=== PATIENT | male | born 1945 | race Two or more races ===

== ENCOUNTER 2017-01-22 21:32 | Emergency (ER) | payer MEDICARE, BC ==
[2017-01-22 22:30] LABS: ABSOLUTE LYMPHOCYTES (AUTO) 1.2 10^3/uL (0.5-4.7); ABSOLUTE MONOCYTES (AUTO) 0.4 10^3/uL (0.1-1.4); ABSOLUTE NEUT (AUTO) 9.1 10^3/uL (1.7-8.2); BASOPHILS % (AUTO) 0.4 % (0-2); EOSINOPHILS % (AUTO) 0.2 % (0-6); HEMATOCRIT 46.8 % (37.9-51.0); HEMOGLOBIN 16.4 g/dL (13.5-17.0); HGB HCT DIFFERENCE 2.4; LYMPHOCYTES % (AUTO) 11.5 % (13-45); MEAN CORPUSCULAR HEMOGLOBIN 31.1 pg (27.0-33.4); MEAN CORPUSCULAR VOLUME 89 fl (80-97); MONOCYTES % (AUTO) 3.9 % (3-13); RED BLOOD COUNT 5.28 10^6/uL (4.35-5.55); RED CELL DISTRIBUTION WIDTH 12.8 % (11.5-14.0); WHITE BLOOD COUNT 10.8 10^3/uL (4.0-10.5)
[2017-01-22 22:33] LABS: APPEARANCE,URINE CLEAR; BILIRUBIN,URINE NEGATIVE (NEGATIVE); GLUCOSE, URINE 50 mg/dL (NEGATIVE); KETONES,URINE 80 mg/dL (NEGATIVE); LEUKOCYTE ESTERASE,URINE SMALL (NEGATIVE); NITRITE,URINE NEGATIVE (NEGATIVE); PROTEIN,URINE NEGATIVE (NEGATIVE); UROBILINOGEN,URINE NEGATIVE mg/dL (<2.0)
[2017-01-22 22:50] LABS: ALANINE AMINOTRANSFERASE 51 U/L (21-72); ALBUMIN 4.9 g/dL (3.5-5.0); ALKALINE PHOSPHATASE 64 U/L (38-126); ANION GAP 15 (5-19); ASPARTATE AMINO TRANSFERASE 25 U/L (17-59); BILIRUBIN,DIRECT 0.4 mg/dL (0.0-0.4); BILIRUBIN,TOTAL 0.8 mg/dL (0.2-1.3); BLOOD UREA NITROGEN 19 mg/dL (7-20); CALCIUM 10.3 mg/dL (8.4-10.2); CARBON DIOXIDE 25 mmol/L (22-30); CHLORIDE 101 mmol/L (98-107); CREATININE RESULT 1.12 mg/dL (0.52-1.25); GLUCOSE 136 mg/dL (75-110); LIPASE 118.4 U/L (23-300); POTASSIUM 4.5 mmol/L (3.6-5.0); SODIUM 140.9 mmol/L (137-145); TOTAL PROTEIN 7.8 g/dL (6.3-8.2)
--- NOTE | 2017-01-22 23:48 | ER Document Report ---
ED GI/ - General Chief Complaint: Abdominal Pain Stated Complaint: ABDOMINAL PAIN Time Seen by Provider: 01/22/17 23:38 Mode of Arrival: Ambulatory Information source: Patient TRAVEL OUTSIDE OF THE [place] IN LAST 30 DAYS: No - HPI Patient complains to provider of: Abdominal pain Notes: 01/22/17 23:45 71-year-old male with history of appendectomy and prostatectomy presents with epigastric pain. Radiating at about 4:00 this afternoon radiating to the interscapular region. Pain is fairly severe initially somewhat like he had to belch and the air was trapped. It has slowly since subsided and is extremely mild at this point. He had nausea but no vomiting. He had 2 bowel movements which were normal without blood or melena and feels that this helped improve his pain as well. No fever. No cough or cold symptoms. Denies any anterior chest discomfort, arm pain jaw pain or other anginal equivalents otherwise. - Related Data Allergies/Adverse Reactions: No Known Allergies Allergy (Verified 01/22/17 21:41) Past Medical History - Social History Smoking Status: Never Smoker Family History: Reviewed & Not Pertinent Patient has suicidal ideation: No Patient has homicidal ideation: No Renal/ Medical History: Denies: Hx Peritoneal Dialysis Review of Systems - Review of Systems -: Yes All other systems reviewed and negative Physical Exam - Vital signs Vitals: Temp Pulse Resp BP Pulse Ox 97.7 F 56 L 18 187/81 H 97 01/22/17 21:42 01/22/17 21:42 01/22/17 21:42 01/22/17 21:42 01/22/17 21:42 - Notes Notes: GENERAL: VS as per nursing doc. Well-appearing, well-nourished and in no acute distress. HEAD: Atraumatic, normocephalic. EYES: Pupils equal round and reactive to light, extraocular movements intact, sclera anicteric, no conjunctival injection or discharge. ENT: Nares patent, oropharynx clear without exudates, moist mucous membranes. NECK: Normal range of motion, supple without lymphadenopathy. LUNGS: Breath sounds clear to auscultation bilaterally and equal. No wheezes rales or rhonchi. HEART: Regular rate and rhythm without murmurs. Symmetrical pulses. ABDOMEN: Soft, essentially nontender with a minimal amount of tenderness just above the umbilicus. No pulsatile mass is noted., normoactive bowel sounds. No guarding, no rebound. No masses appreciated. No Armington sign. BACK: No CVA tenderness. EXTREMITIES: Normal range of motion, no calf tenderness, no edema. Femoral pulses are equal. NEUROLOGICAL: Normal speech. Normal sensory and motor exams. No gross cerebellar abnormalities. PSYCH: Normal mood, normal affect. SKIN: Warm, dry, normal turgor, no lesions noted. Course - Re-evaluation Re-evalutation: 01/23/17 01:36 Patient is completely pain-free. Minimal white count elevation. Otherwise clinically has no signs of cholecystitis. This seems consistent with biliary colic. LFTs and lipase are normal. He is asking to go home which seems reasonable and I had a long discussion with him regarding warning signs for follow-up and return to the ER emergency warning signs. He voices understanding. On recheck abdomen is soft nontender no right upper quadrant tenderness at all epigastric tenderness or Lopez sign. They understand and verbally voiced understanding of warning signs and follow-up plans. - Vital Signs Vital signs: Temp Pulse Resp BP Pulse Ox 97.7 F 56 L 18 187/81 H 97 01/22/17 21:42 01/22/17 21:42 01/22/17 21:42 01/22/17 21:42 01/22/17 21:42 - Laboratory Result Diagrams: 01/22/17 22:10 01/22/17 22:10 Laboratory results interpreted by me: 01/22/17 01/22/17 01/22/17 22:10 22:10 22:10 WBC 10.8 H Seg Neutrophils % 84.0 H Lymphocytes % 11.5 L Absolute Neutrophils 9.1 H Glucose 136 H Calcium 10.3 H Urine Glucose (UA) 50 H Urine Ketones 80 H Urine Blood SMALL H Ur Leukocyte Esterase SMALL H - Diagnostic Test Radiology reviewed: Reports reviewed - Cholelithiasis, no acute abnormality otherwise. Small infrarenal aortic aneurysm for follow-up as discussed with patient - EKG Interpretation by Me Rate: Bradycardia - First-degree AV block, no clear ischemia. QRS of normal duration. Discharge - Discharge Clinical Impression: Abdominal pain, Cholelithiasis, Biliary colic Condition: Good Disposition: HOME, SELF-CARE Instructions: Gallbladder Disease ([facility]) Additional Instructions: Return for worsening problems or concerns, development of fever, recurrence of pain that does not stop. Avoid fatty foods. Call the surgeon listed first thing in the morning to arrange follow-up. Gallbladder Disease Your evaluation shows evidence of gallbladder disease. The gallbladder is a pouch under the liver which stores bile. Stones, infection, or irritation of the gallbladder cause attacks of pain. Certain foods -- fats in particular -- may provoke attacks. The usual treatment for gallbladder disease is surgical removal of the gallbladder -- called a cholecystectomy. You will be referred to a physician qualified to advise you on the best treatment for your problem. Hospitalization is not necessary. Take clear liquids only until you are painfree. After that, you should stay on a low-fat diet, with frequent SMALL meals. Call the doctor or return at once if you develop severe pain, repeated vomiting, fever, or jaundice (a yellow color in the skin and whites of the eyes) . Referrals: EDWAR WATKINS MD [Primary Care Provider] - Follow up as needed PRAVIN RACHEL MD [[facility]] - Follow up tomorrow (Call tomorrow to get follow-up with the surgeon to discuss elective gallbladder surgery.)
[2017-01-23] MEDS ORDERED: NORMAL SALINE 1000 ML 1,000 ML IV ONE (00:21)
--- NOTE | 2017-01-23 01:18 | RADIOLOGY REPORT (SQ) ---
EXAM DESCRIPTION: CT ABDOMEN AND PELVIS WITH CONTRAST CLINICAL HISTORY: Abdominal Pain with radiating to back COMPARISON: None Available. TECHNIQUE: CT of the abdomen and pelvis are performed during IV bolus administration of 100.2 mL of Isovue-370. DLP: 1467.40 mGycm FINDINGS: Abdomen: The liver has normal size and density. No intrahepatic mass or biliary dilatation. Calcified gallstones. The spleen, pancreas, and adrenal glands are unremarkable. The kidneys have normal size and contour without evidence of solid mass or hydronephrosis. Atherosclerotic calcification of the abdominal aorta. Infrarenal abdominal aortic aneurysm measuring 3.3 cm. s No free intraperitoneal air. The stomach and duodenum have normal course. Pelvis: Prostate is not enlarged. Postoperative change in the pelvis. Urinary bladder is unremarkable. No free pelvic fluid or lymphadenopathy. Scattered diverticula throughout the colon without pericolic fat stranding. No evidence of appendicitis. Calcified right basilar granuloma. Numerous subcentimeter indeterminate pulmonary nodules bilaterally. A payable representative nodule is best seen on image #9, series 4 measuring 0.7 cm. No consolidation. No destructive bone lesions identified. Mild degenerative change of the spine. IMPRESSION: 1. No acute inflammatory or obstructive abnormality identified. 2. Cholelithiasis. 3. Diverticulosis without evidence of diverticulitis. 4. Numerous bilateral subcentimeter low indeterminate pulmonary nodules, the largest measuring 7 mm in the right lower lobe. Given large calcified granuloma in the right lung bases these may represent sequela of granulomatous disease however metastatic disease or less likely acute infectious process can produce a similar appearance. Correlation with dedicated CT of the chest for complete characterization recommended. 5. 3.4 cm infrarenal abdominal aortic aneurysm. Follow-up imaging in 3 years recommended for continued surveillance. This exam was performed according to our departmental dose-optimization program, which includes automated exposure control, adjustment of the mA and/or kV according to patient size and/or use of iterative reconstruction technique.
[2017-01-23 02:52] VITALS: BP 165/82
--- NOTE | 2017-01-23 09:15 | EKG REPORT ---
SEVERITY:- ABNORMAL ECG - SINUS RHYTHM FIRST DEGREE AV BLOCK BORDERLINE LEFT AXIS DEVIATION : Confirmed by: Wisam Nation 23-Jan-2017 09:15:01
== END 2017-01-23 02:25 | disposition home or self-care (01) ==
LOC: ER 21:32
DX: K80.20 Calculus of gallbladder without cholecystitis without obstruction (principal); R10.13 Epigastric pain; R11.0 Nausea; I44.0 Atrioventricular block, first degree; Z90.49 Acquired absence of other specified parts of digestive tract; Z90.79 Acquired absence of other genital organ(s)
CPT/HCPCS: 36415; 74177; 80053; 81001; 83690; 84484; 85025; 87086; 87088; 87186; 93005; 93010; 99284

== ENCOUNTER → 2017-05-09 | Outpatient (CLI) | payer MEDICARE, BC ==
--- NOTE | 2017-05-09 15:43 | RADIOLOGY REPORT (SQ) ---
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 The route of agent administration: Intravenous. ADDITIONAL DRUGS AND DOSES: None. TECHNIQUE: Routine delayed images at 3 hours post radionuclide injection acquired of the bony skelet on including anterior and posterior whole-body projections and additional focused images as needed. LIMITATIONS: None. FINDINGS: BONES: No skeletal areas of increase tracer activity to suggest metastatic disease is seen . There is fairly symmetric increased activity at the level of the shoulders, sternoclavicular joint s, knees, and ankles most consistent with degenerative changes. KIDNEYS: Symmetric excretion without obstruction. OTHER: There is some focal increased activity in the genital region presumably related to urine conta mination. IMPRESSION: No skeletal areas of increased tracer activity to suggest metastatic disease is seen. O ther findings as noted above COMMENT: Quality measure 147: TECHNICAL DOCUMENTATION: JOB ID: [id number] [employer]- All Rights Reserved Reading location - IP/workstation name: [email or web address]
== END ==
LOC: RAD 10:37
PROVIDERS: ATTEND Nurse Practitioner Family
DX: C61 Malignant neoplasm of prostate (principal)
CPT/HCPCS: 78306; A9561; Q9969

== ENCOUNTER 2017-09-18 08:04 | Day surgery (SDC) | payer MEDICARE, BC ==
[~2017-09-18 08:04] MED LIST: DIPHENHYDRAMINE HCL 50 MG/ML VIAL ONE; EPINEPHRINE INJ 1 MG/10 ML DISP.SYRIN ONE; FLUMAZENIL INJ 0.5 MG/5 ML VIAL ONE; GLUCAGON,HUMAN RECOMB 1 MG INJ ONE; MIDAZOLAM 2 MG/2 ML INJ ONE; NALOXONE HCL INJ/PF 0.4 MG/1 ML SDV ONE; ONDANSETRON HCL INJ/PF 4 MG/2 ML SDV ONE
[2017-09-18] MEDS: MIDAZOLAM 2 MG/2 ML INJ ONE ×3 (08:37→08:46)
[2017-09-18] MEDS: FENTANYL CITRATE INJ/PF 100 MCG/2 ML AMPUL ONE ×3 (08:39→09:18)
--- NOTE | 2017-09-18 09:53 | Discharge Summary ---
Discharge Summary (SDC) - Discharge Final Diagnosis: 1. Incomplete colonoscopy 2. Multiple rectosigmoid polyps 3. Extensive sigmoid diverticulosis: Rule out stricture Date of Surgery: 09/18/17 Discharge Date: 09/18/17 Condition: Good Treatment or Instructions: [facility] [address] [address] POST ENDOSCOPY DISCHARGE INSTRUCTIONS 1. Diet: Start clear liquids that a regular diet as tolerated. 2. Resume all preoperative medications. All oral anticoagulants and aspirins can be resumed 24 hours after procedure. 3. If a polypectomy was performed some bleeding per rectum may occur. This should stop within 3 days. If not, please contact the office. 4. If you had a colonoscopy you may experience some bloating and delayed return of normal bowel function for several days, your regular bowel movement pattern should resume within a week. 5. Please contact [facility] at to make an appointment with Dr. Kyle for 1 to 3 weeks following procedure. 6. If you have any questions or concerns regarding your care,treatment plan or follow up, please contact our office. 7. Follow-up will involve air-contrast barium enema; will be ordered by [facility]. This was discussed with patient's . Referrals: ASHLEY WILSON PA-C [Primary Care Provider] - Discharge Diet: As Tolerated Discharge Activity: Activity As Tolerated Home Care Assistance: None Needed Report the Following to Your Physician Immediately: Shortness of Breath, Increase in Pain, Fever over 101 Degrees
--- NOTE | 2017-09-18 09:58 | Operative Report ---
Operative Report DATE OF SURGERY: 09/18/17 PREOPERATIVE DIAGNOSIS: 1. Mucous screening colonoscopy. 2. Sigmoid diverticulosis. 3. Surgery of radical prostatectomy, radiation therapy. 4. Rule out colovesicular fistula POSTOPERATIVE DIAGNOSIS: Same as above with multiple rectal polyps OPERATION: 1. Flexible colonoscopy to sigmoid colon approximately 30 cm verge. 2. Upper rectal polypectomy 2 with hot snare device and specimen retrieval SURGEON: ALVARO OLE[facility] ANESTHESIA: Moderate Sedation TISSUE REMOVED OR ALTERED: 2 polyps COMPLICATIONS: None ESTIMATED BLOOD LOSS: Scant INTRAOPERATIVE FINDINGS: See below PROCEDURE: Obtaining informed consent the patient was taken from the preoperative holding area to the main endoscopy suite where monitoring devices were attached to the patient. Plan and surgical timeout were conducted The patient was placed in the left lateral decubitus position with knees to chest. A perianal examination was performed. There was no visible or palpable anorectal pathology. Sphincter tone was moderately increased; the posterior surface of the anal rectal canal was slightly lobulated but no discrete mass. The flexible pediatric colonoscope was advanced to the anal rectal canal. There are extensive upper rectal and sigmoid diverticulosis. Despite adequate sedation, an adequate bowel prep, and extensive manipulation of the patient, as well as extracorporeal manipulation by the endoscopy staff, I was not able to successfully advance the colonoscope beyond 30 cm from the anal verge. There were 2 pedunculated polyps of the upper and mid rectum which were removed with the hot snare device medium strength with retention of both specimens. There was sent in one container to pathology for permanent analysis and labeled rectosigmoid colon polyps. This scope was withdrawn from the patient's anorectal canal. No evidence of trauma noted. Patient tolerated the procedure well. Follow-up will require air-contrast barium enema which will be ordered to [facility] to rule out sigmoid colon stricture and more proximal pathology. This was discussed with the patient's .
[2017-09-18 10:46] VITALS: BP 134/78
== END 2017-09-18 10:47 | disposition home or self-care (01) ==
LOC: END 08:04
PROVIDERS: ATTEND Surgery
PROC: 0DBN8ZX Excision of Sigmoid Colon, Via Natural or Artificial Opening Endoscopic, Diagnostic (ICD-10-PCS; principal; 2017-09-18 08:15)
DX: Z12.11 Encounter for screening for malignant neoplasm of colon (principal); K57.30 Diverticulosis of large intestine without perforation or abscess without bleeding; D12.7 Benign neoplasm of rectosigmoid junction; I10 Essential (primary) hypertension
CPT/HCPCS: 45385; 88305 ×2; J2250; J3010; J0171; J1200; J1610; J2310; J2405; J3490

== ENCOUNTER → 2019-01-15 | Outpatient (CLI) | payer MEDICARE, BC ==
--- NOTE | 2019-01-15 12:19 | RADIOLOGY REPORT (SQ) ---
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 The route of agent administration: Intravenous. ADDITIONAL DRUGS AND DOSES: None. TECHNIQUE: Routine delayed images at 3 hour post radionuclide injection acquired of the bony skeleto n including anterior and posterior whole-body projections and additional focused images as needed. LIMITATIONS: None. FINDINGS: BONES: Persistent symmetric uptake in the right and left sternoclavicular joints. Minimal uptake in both knees and both feet. Findings are consistent with degenerative disease. No findings to suggest metastatic disease. Focal uptake in the right lateral aspect of the L5 vertebral body is unchanged and most likely degenerative as well. KIDNEYS: Symmetric excretion without obstruction. OTHER: No other significant finding. IMPRESSION: Scattered areas of uptake consistent with degenerative disease. No evidence of metastat ic disease. COMMENT: Quality measure 147: Current bone scan is compared with any available plain radiographs, p rior bone scans, and CT/MRI. TECHNICAL DOCUMENTATION: JOB ID: [id number] [employer]- All Rights Reserved Reading location - IP/workstation name: [email or web address]
== END ==
LOC: RAD 08:03
PROVIDERS: ATTEND Urology
DX: C61 Malignant neoplasm of prostate (principal)
CPT/HCPCS: 78306; A9561; Q9969